=== PATIENT | male | born 2000 | race Caucasian/White ===

== ENCOUNTER 2022-11-15 05:50 | Day surgery (SDC) | payer MEDICAID ==
[2022-11-15 06:09] LABS: BASOPHILS PERCENT AUTO 0.3 % (0.1-1.3); EOSINOPHILS PERCENT AUTO 1.3 % (0.0-5.4); HEMATOCRIT 46.9 % (38.4-49.7); HEMOGLOBIN 16.5 g/dL (12.9-16.9); IMMATURE GRAN PERCENT AUTO 0.3 % (0.0-0.7); LYMPHOCYTES ABSOLUTE AUTO 2.89 K/uL (0.8-3.3); LYMPHOCYTES PERCENT AUTO 36.6 % (11.4-47.7); MEAN CORPUSCULAR HEMOGLOBIN 30.4 pg (31.6-35.5); MEAN CORPUSCULAR HGB CONC 35.2 g/dL (31.6-35.5); MEAN CORPUSCULAR VOLUME 86.5 fL (81.4-99.0); MONOCYTES ABSOLUTE AUTO 0.47 K/uL (0.20-0.90); NEUTROPHILS ABSOLUTE AUTO 4.39 K/uL (1.0-7.6); NEUTROPHILS PERCENT AUTO 55.5 % (40.0-78.1); PLATELET COUNT,PLT 251 K/uL (130-375); RED BLOOD CELL COUNT 5.42 M/uL (4.14-5.76); WHITE BLOOD CELL COUNT,WBC 7.9 K/uL (3.2-11.0)
[2022-11-15 06:16] LABS: BASOPHILS ABSOLUTE AUTO 0.02 K/uL (0.00-0.10); IMMATURE GRAN ABSOLUTE AUTO 0.02 K/uL (0.00-0.23)
[2022-11-15 06:19] LABS: CALCIUM 8.9 mg/dL (8.5-10.1); CREATININE 1.2 mg/dL (0.8-1.3); EST CRCL DRUG DOSING (CG) 107.78 mL/min; POTASSIUM,K 3.9 mmol/L (3.6-5.2)
[2022-11-15] MEDS ORDERED: Lactated Ringers 1,000 ML IV SCH ×2 (06:30→11:15)
[2022-11-15] MEDS ORDERED: Acetaminophen 500 MG Tab PO ONE (06:30)
[2022-11-15 06:49] LABS: ANION GAP 13.9 mmol/L (5.0-14.0)
[2022-11-15] MEDS ORDERED: Bupivacaine 0.5%/EPINEPHrine 1:200,000 50 ML MDV ONE (06:51)
[2022-11-15] MEDS ORDERED: fentaNYL 250 MCG/5 ML SDV ONE (07:18)
[2022-11-15] MEDS ORDERED: Neostigmine Methylsulfate 1 MG/ML 5 ML Syringe ONE (07:19)
[2022-11-15] MEDS ORDERED: Dexamethasone 4 MG/ML SDV ONE (07:19)
[2022-11-15] MEDS ORDERED: Rocuronium 50 MG/5 ML Vial ONE (07:19)
[2022-11-15] MEDS ORDERED: Succinylcholine 200 MG/10 ML MDV ONE (07:19)
[2022-11-15] MEDS ORDERED: Propofol 200 MG/20 ML SDV ONE (07:19)
[2022-11-15] MEDS ORDERED: Ondansetron 4 MG/2 ML SDV ONE (07:19)
[2022-11-15] MEDS ORDERED: Glycopyrrolate 0.2 MG/ML 5 ML MDV ONE (07:19)
[2022-11-15] MEDS ORDERED: ceFAZolin 2 GM in Premix Bag 1 BAG IV ONE (07:30)
[2022-11-15] MEDS ORDERED: Ketorolac 30 MG/ML SDV ONE (09:05)
[2022-11-15] MEDS ORDERED: hydrOXYzine HCL 100 MG/2 ML SDV IM ONE (09:51)
[2022-11-15] MEDS ORDERED: fentaNYL 50 MCG/ML SDV IVPUSH ONE (09:51)
[2022-11-15] MEDS ORDERED: Acetaminophen/HYDROcodone 325-5 MG Tab PO PRN (11:38)
== END 2022-11-15 14:15 | disposition home or self-care (01) ==
LOC: JP.SDS 05:50
PROVIDERS: ATTEND Student in an Organized Health Care Education/Training Program
DX: K40.90 Unilateral inguinal hernia, without obstruction or gangrene, not specified as recurrent (principal); K21.9 Gastro-esophageal reflux disease without esophagitis; E66.9 Obesity, unspecified; Z91.040 Latex allergy status; Z68.34 Body mass index [BMI] 34.0-34.9, adult
CPT/HCPCS: 36415; 49650; 80048; 85025; A9270; J0330; J1100; J1885; J2405; J2704; J2710; J3010; J3410; J3490; J7120; C1781